=== PATIENT | female | born 1980 | race Caucasian/White ===

== ENCOUNTER 2022-01-23 18:52 | Emergency (ER) | payer OTHER, MEDICAID ==
[~2022-01-23] VITALS: Ht 165.1 cm; Wt 140.5 kg
== END 2022-01-23 21:46 | disposition left against medical advice (07) ==
LOC: M ED 18:52
DX: Z53.21 Procedure and treatment not carried out due to patient leaving prior to being seen by health care provider (principal)

== ENCOUNTER → 2022-01-29 | Outpatient (REF) | payer OTHER, MEDICAID | LOC: M PLALAB 09:01 | PROVIDERS: ATTEND Advanced Practice Midwife | DX: Z53.9 Procedure and treatment not carried out, unspecified reason (principal) ==

== ENCOUNTER → 2022-02-06 | Outpatient (CLI) | payer OTHER, MEDICAID | LOC: M PLALAB 07:11 | PROVIDERS: ATTEND Advanced Practice Midwife | DX: O03.9 Complete or unspecified spontaneous abortion without complication (principal); Z3A.00 Weeks of gestation of pregnancy not specified ==

== ENCOUNTER → 2022-06-30 | Outpatient (CLI) | payer MEDICAID, OTHER ==
[2022-06-30 13:31] LABS: HEMOGLOBIN 12.1 g/dl (12.0-15.5); MEAN CORPUSCULAR HEMOGLOBIN 27.1 pg (27.0-33.0); MEAN CORPUSCULAR HGB CONC 31.8 g/dl (32.0-36.5); MEAN CORPUSCULAR VOLUME 85.2 fl (80.0-96.0); PLATELET COUNT, AUTOMATED 278 10^3/uL (150-450); RED BLOOD COUNT 4.46 10^6/uL (4.00-5.40); WHITE BLOOD COUNT 9.5 10^3/uL (4.0-10.0)
[2022-06-30 14:02] LABS: HEMOGLOBIN A1c 5.7 %
[2022-06-30 14:47] LABS: GC DNA AMPLIFICATION NEGATIVE (NEGATIVE)
[2022-06-30 15:47] LABS: GLUCOSE CHALLENGE TEST 1 HOUR 217 MG/DL (LESS THAN 140); HEPATITIS C VIRUS ABY INDEX < 0.0 INDEX (<0.8); HIV 1&2 SCREEN CENTAUR NEGATIVE (NEGATIVE)
== END ==
LOC: M PLALAB 10:58
PROVIDERS: ATTEND Advanced Practice Midwife
DX: O09.529 Supervision of elderly multigravida, unspecified trimester (principal)

== ENCOUNTER → 2022-08-11 | Outpatient (REF) | payer OTHER, MEDICAID | LOC: M SFHCWAGY 17:06 | PROVIDERS: ATTEND Advanced Practice Midwife | DX: O09.529 Supervision of elderly multigravida, unspecified trimester (principal) ==

== ENCOUNTER → 2022-08-24 | Outpatient (CLI) | payer OTHER | LOC: M WHC 14:39 | PROVIDERS: ATTEND Advanced Practice Midwife | DX: O09.522 Supervision of elderly multigravida, second trimester (principal); Z3A.19 19 weeks gestation of pregnancy ==

== ENCOUNTER → 2022-09-30 | Outpatient (CLI) | payer OTHER | LOC: M WHC 14:06 | PROVIDERS: ATTEND Advanced Practice Midwife | DX: O24.312 Unspecified pre-existing diabetes mellitus in pregnancy, second trimester (principal); Z3A.24 24 weeks gestation of pregnancy ==

== ENCOUNTER → 2022-10-29 | Outpatient (CLI) | payer OTHER | LOC: M WHC 15:46 | PROVIDERS: ATTEND Specialist | DX: Z34.82 Encounter for supervision of other normal pregnancy, second trimester (principal); Z3A.28 28 weeks gestation of pregnancy ==

== ENCOUNTER → 2022-10-29 | Outpatient (CLI) | payer OTHER ==
[2022-10-29 17:39] LABS: HEMATOCRIT 33.7 % (36.0-47.0); HEMOGLOBIN 10.6 g/dl (12.0-15.5); MEAN CORPUSCULAR HEMOGLOBIN 28.1 pg (27.0-33.0); MEAN CORPUSCULAR HGB CONC 31.5 g/dl (32.0-36.5); MEAN CORPUSCULAR VOLUME 89.4 fl (80.0-96.0); PLATELET COUNT, AUTOMATED 277 10^3/uL (150-450); RED BLOOD COUNT 3.77 10^6/uL (4.00-5.40); WHITE BLOOD COUNT 11.1 10^3/uL (4.0-10.0)
[2022-10-29 19:44] LABS: GC DNA AMPLIFICATION NEGATIVE (NEGATIVE)
== END ==
LOC: M PLALAB 15:00
PROVIDERS: ATTEND Specialist
DX: Z34.82 Encounter for supervision of other normal pregnancy, second trimester (principal)
CPT/HCPCS: 36415; 82950; 85027; 86850; 86900; 86901; 87810; 87850; J2790

== ENCOUNTER → 2022-12-04 | Outpatient (CLI) | payer OTHER | LOC: M WHC 13:01 | PROVIDERS: ATTEND Obstetrics & Gynecology | DX: O24.913 Unspecified diabetes mellitus in pregnancy, third trimester (principal); Z3A.34 34 weeks gestation of pregnancy ==

== ENCOUNTER 2022-12-18 16:57 | Outpatient (CLI) | payer OTHER, MEDICAID ==
[~2022-12-18] VITALS: Ht 165.1 cm; Wt 141.4 kg
[2022-12-18 17:15] VITALS: BP 135/62
[2022-12-18] MEDS ORDERED: METF-839 PO (17:21)
[2022-12-18] MEDS ORDERED: ASPI81CH33 PO (17:21)
[2022-12-18] MEDS ORDERED: ACET-683 PO (17:21)
[2022-12-18] MEDS ORDERED: MULTTAB20 PO (17:21)
[2022-12-18] MEDS ORDERED: HOME MED LIST COMPLETE! XX SCH (17:25)
== END 2022-12-18 18:30 | disposition home or self-care (01) ==
LOC: M LDO 16:57
PROVIDERS: ATTEND Advanced Practice Midwife
DX: O24.419 Gestational diabetes mellitus in pregnancy, unspecified control (principal); O99.213 Obesity complicating pregnancy, third trimester; E66.9 Obesity, unspecified; Z3A.36 36 weeks gestation of pregnancy
CPT/HCPCS: 59025; 76815; 76819; 76820; G0463

== ENCOUNTER → 2022-12-18 | Outpatient (REF) | payer OTHER, MEDICAID ==
[~2022-12-18] MED LIST: ACET-683 PO; ASPI81CH33 PO; METF-839 PO; MULTTAB20 PO
== END ==
LOC: M SFHCWAGY 13:06
PROVIDERS: ATTEND Advanced Practice Midwife
DX: Z3A.36 36 weeks gestation of pregnancy (principal)

== ENCOUNTER 2023-01-02 11:46 | Inpatient (IN) | payer OTHER, MEDICAID ==
[2023-01-02] VITALS (20 sets, daily range): BP systolic 115–145; BP diastolic 57–82
[~2023-01-02] VITALS: Ht 165.1 cm; Wt 140.7 kg
[2023-01-02] MEDS ORDERED: LIDOCAINE 1% MDV 20ML VIAL INFIL PRN (12:15)
[2023-01-02] MEDS ORDERED: CARBOPROST TROMETHAMINE 250 MCG/ML AMP IM PRN (12:15)
[2023-01-02] MEDS ORDERED: TRANEXAMIC ACID INJection 1,000 MG in NS 100 ML IV PRN (12:15)
[2023-01-02] MEDS ORDERED: METHYLERGONOVINE MALEATE 0.2MG/ML 1ML VIAL IM PRN (12:15)
[2023-01-02] MEDS ORDERED: OXYTOCIN DRIP 30 UNITS in IV 1 EA IV PRN ×4 (12:15)
[2023-01-02] MEDS ORDERED: HOME MED LIST COMPLETE! XX SCH (12:45)
[2023-01-02 13:31] LABS: HEMATOCRIT 33.7 % (36.0-47.0); MEAN CORPUSCULAR HEMOGLOBIN 27.8 pg (27.0-33.0); MEAN CORPUSCULAR HGB CONC 32.6 g/dl (32.0-36.5); MEAN CORPUSCULAR VOLUME 85.3 fl (80.0-96.0); PLATELET COUNT, AUTOMATED 262 10^3/uL (150-450); RED BLOOD COUNT 3.95 10^6/uL (4.00-5.40); WHITE BLOOD COUNT 11.8 10^3/uL (4.0-10.0)
[2023-01-02] MEDS ORDERED: OXYTOCIN DRIP 30 UNITS in IV 1 EA IV SCH (13:35)
[2023-01-02] MEDS: LR 1,000 ML IV SCH ×2 (14:00→21:45)
[2023-01-02] MEDS ORDERED: ACETAMINOPHEN 500 MG TAB PO PRN (17:55)
[2023-01-03] VITALS (44 sets, daily range): BP systolic 99–155; BP diastolic 53–83
[2023-01-03] MEDS: LR 1,000 ML IV SCH ×5 (04:55→23:50)
[2023-01-03] MEDS ORDERED: EPIDURAL/PCA KEYS XX PRN (05:35)
[2023-01-03] MEDS ORDERED: NALOXONE INJ 0.4MG/1ML VIAL IV PRN ×3 (05:35→14:55)
[2023-01-03] MEDS ORDERED: diphenhydrAMINE 50MG/ML VIAL IV PRN ×2 (05:35→14:55)
[2023-01-03] MEDS ORDERED: LR 500 ML IV PRN (05:35)
[2023-01-03] MEDS ORDERED: ePHEDrine SULFATE 25 MG/5 ML(5MG/ML) SYRINGE IVP PRN (05:35)
[2023-01-03] MEDS ORDERED: ONDANSETRON 4MG 2ML VIAL IV PRN ×3 (05:35→15:50)
[2023-01-03] MEDS: FENTANYL/ROPIVACAINE/NACL BAG 100 ML EPIDURAL SCH ×2 (06:04→13:43)
[2023-01-03] MEDS ORDERED: BICITRA 30ML SOLN UDC PO ONE (14:10)
[2023-01-03] MEDS ORDERED: AZITHROMYCIN INJ 500 MG, VIAL MATE ADAPTER 1 EACH in NS 250 ML IV ONE (14:10)
[2023-01-03] MEDS ORDERED: METHYLERGONOVINE MALEATE 0.2MG/ML 1ML VIAL IM PRN (14:10)
[2023-01-03] MEDS ORDERED: TRANEXAMIC ACID INJection 1,000 MG in NS 100 ML IV PRN (14:10)
[2023-01-03] MEDS ORDERED: ceFAZolin SOD 3 GM IV Place Holder IV ONE (14:10)
[2023-01-03] MEDS ORDERED: ceFAZolin SOD 2 GM in IV 1 EA IV ONE (14:25)
[2023-01-03] MEDS ORDERED: ceFAZolin SOD 1 GM in D5W MINI-BAG PLUS 50 ML IV ONE (14:25)
[2023-01-03] MEDS ORDERED: LIDOCAINE 2% W/EPINEPHRINE 20ML VIAL **PRES FREE As Ordered ONE (14:34)
[2023-01-03] MEDS ORDERED: MEPERIDINE 25 MG/ML 1ML VIAL IV PRN (14:55)
[2023-01-03] MEDS ORDERED: oxyCODONE 5MG TAB PO PRN (14:55)
[2023-01-03] MEDS ORDERED: METOCLOPRAMIDE INJ 10MG/2ML VIAL IV PRN (14:55)
[2023-01-03] MEDS ORDERED: fentaNYL 100 MCG/2 ML INJECTION IV PRN (14:55)
[2023-01-03] MEDS ORDERED: KETOROLAC 60MG 2ML VIAL As Ordered ONE (14:59)
[2023-01-03] MEDS ORDERED: ONDANSETRON 4MG 2ML VIAL As Ordered ONE (14:59)
[2023-01-03] MEDS ORDERED: PHENYLephrine 500MCG 5ML (100MCG/ML) SYRINGE As Ordered ONE (14:59)
[2023-01-03] MEDS ORDERED: SODIUM BICARBONATE 8.4% INJ 50ML SYRINGE As Ordered ONE (14:59)
[2023-01-03] MEDS ORDERED: MORPHINE PRES-FREE INJ 10 MG/10 ML VIAL As Ordered ONE (15:02)
[2023-01-03] MEDS ORDERED: OXYTOCIN 30UNITS IN 0.9% NaCl 500ML IV BAG As Ordered ONE (15:25)
[2023-01-03] MEDS ORDERED: RHOGAM 300MCG (1500IU) INJ IM SCH (15:50)
[2023-01-03] MEDS ORDERED: PERCOCET 5MG/325MG TAB PO PRN ×2 (15:50)
[2023-01-03] MEDS ORDERED: OXYTOCIN DRIP 30 UNITS in IV 1 EA IV SCH (15:50)
[2023-01-03] MEDS ORDERED: MOM 30ML SUSPENSION UDC PO PRN (15:50)
[2023-01-03] MEDS ORDERED: SIMETHICONE 80MG CHEW TAB PO PRN (15:50)
[2023-01-03] MEDS: SLF 3 ML SYR IV SCH ×2 (19:35→22:55)
[2023-01-03] MEDS: DOCUSATE SODIUM 100MG CAPSULE PO SCH (21:12)
[2023-01-03] MEDS: KETOROLAC 30 MG/ML 1ML VIAL IV SCH (22:08)
[2023-01-03] MEDS: ENOXAPARIN 40MG/0.4ML SYRINGE (J1650 PER 10MG) SC SCH (22:24)
[2023-01-04] MEDS: FENTANYL/ROPIVACAINE/NACL BAG 100 ML EPIDURAL SCH (01:33)
[2023-01-04 02:00] VITALS: BP 110/63
[2023-01-04] MEDS: KETOROLAC 30 MG/ML 1ML VIAL IV SCH ×2 (04:04→11:07)
[2023-01-04] MEDS: LR 1,000 ML IV SCH (05:20)
[2023-01-04 06:30] VITALS: BP 93/51
[2023-01-04] MEDS: SLF 3 ML SYR IV SCH (06:55)
[2023-01-04 07:30] LABS: MEAN CORPUSCULAR HEMOGLOBIN 28.1 pg (27.0-33.0); MEAN CORPUSCULAR HGB CONC 31.9 g/dl (32.0-36.5); MEAN CORPUSCULAR VOLUME 88.2 fl (80.0-96.0); PLATELET COUNT, AUTOMATED 196 10^3/uL (150-450); RED BLOOD COUNT 3.06 10^6/uL (4.00-5.40); WHITE BLOOD COUNT 10.6 10^3/uL (4.0-10.0)
[2023-01-04 07:36] LABS: HEMOGLOBIN 8.6 g/dl (12.0-15.5)
[2023-01-04 10:00] VITALS: BP 113/57
[2023-01-04] MEDS: PRENATAL VITAMINS CHEWABLE TABLET PO SCH (11:07)
[2023-01-04] MEDS: ENOXAPARIN 40MG/0.4ML SYRINGE (J1650 PER 10MG) SC SCH ×3 (11:08→22:44)
[2023-01-04] MEDS: DOCUSATE SODIUM 100MG CAPSULE PO SCH ×2 (11:09→20:53)
[2023-01-04 14:00] VITALS: BP 133/64
[2023-01-04 17:45] VITALS: BP 110/56
[2023-01-04] MEDS: IBUPROFEN 800 MG TAB PO SCH (17:51)
[2023-01-04 22:00] VITALS: BP 97/53
[2023-01-05] MEDS: IBUPROFEN 800 MG TAB PO SCH ×2 (01:58→09:20)
[2023-01-05 02:00] VITALS: BP 100/60
[2023-01-05 06:03] VITALS: BP 125/67
[2023-01-05] MEDS ORDERED: MEASLES,MUMPS,RUBELLA VACCINE INJ (MMR-II) SC.IMMUN ONE (09:00)
[2023-01-05] MEDS: PRENATAL VITAMINS CHEWABLE TABLET PO SCH (09:17)
[2023-01-05] MEDS: DOCUSATE SODIUM 100MG CAPSULE PO SCH (09:20)
[2023-01-05 10:00] VITALS: BP 126/60
[2023-01-05] MEDS: ENOXAPARIN 40MG/0.4ML SYRINGE (J1650 PER 10MG) SC SCH (10:32)
[2023-01-05] MEDS ORDERED: COLA100C5 PO (12:31)
[2023-01-05] MEDS ORDERED: IBUP80TA PO (12:31)
[2023-01-05] MEDS ORDERED: PERCOCET PO (12:31)
== END 2023-01-05 15:18 | disposition home or self-care (01) | DRG 540 ==
LOC: M LDI 11:46 → M OBS 01-03 17:38
PROVIDERS: ADMIT Obstetrics & Gynecology; ATTEND Obstetrics & Gynecology
PROC: 3E033VJ Introduction of Other Hormone into Peripheral Vein, Percutaneous Approach (ICD-10-PCS; 2023-01-02)
PROC: 10D00Z1 Extraction of Products of Conception, Low, Open Approach (ICD-10-PCS; principal; 2023-01-03 14:30)
DX: O24.313 Unspecified pre-existing diabetes mellitus in pregnancy, third trimester (principal); O61.0 Failed medical induction of labor; Z37.0 Single live birth; Z3A.38 38 weeks gestation of pregnancy; O09.523 Supervision of elderly multigravida, third trimester; O34.211 Maternal care for low transverse scar from previous cesarean delivery

== ENCOUNTER → 2023-05-31 | Outpatient (REF) | payer OTHER, MEDICAID ==
[~2023-05-31] MED LIST changes: +COLA100C5 PO; +IBUP80TA PO; +PERCOCET PO
== END ==
LOC: M SFHCWAGY 10:14
PROVIDERS: ATTEND Nurse Practitioner Family
DX: Z12.4 Encounter for screening for malignant neoplasm of cervix (principal)

== ENCOUNTER → 2023-06-11 | Outpatient (CLI) | payer OTHER | LOC: M WHC 08:02 | PROVIDERS: ATTEND Nurse Practitioner Family | DX: Z12.31 Encounter for screening mammogram for malignant neoplasm of breast (principal); Z53.9 Procedure and treatment not carried out, unspecified reason ==

== ENCOUNTER 2024-08-05 16:25 | Inpatient (IN) | payer MEDICAID, OTHER ==
[~2024-08-05] VITALS: Ht 165.1 cm; Wt 139.9 kg
[2024-08-05 17:45] LABS: BASO % 0.3 % (0.0-1.0); EOS # 0.2 10^3/uL (0.0-0.5); EOS % 1.7 % (0.0-3.0); HEMATOCRIT 41.6 % (36.0-47.0); LYMPH # 2.4 10^3/uL (1.5-5.0); LYMPH % 21.2 % (24.0-44.0); MEAN CORPUSCULAR HEMOGLOBIN 25.2 pg (27.0-33.0); MEAN CORPUSCULAR HGB CONC 31.3 g/dl (32.0-36.5); MEAN CORPUSCULAR VOLUME 80.6 fl (80.0-96.0); MONO # 0.7 10^3/uL (0.0-0.8); MONO % 6.2 % (2.0-8.0); NEUTROPHILS # 7.8 10^3/uL (1.5-8.5); NEUTROPHILS % 70.3 % (36.0-66.0); PLATELET COUNT, AUTOMATED 311 10^3/uL (150-450); RED BLOOD COUNT 5.16 10^6/uL (4.00-5.40); WHITE BLOOD COUNT 11.1 10^3/uL (4.0-10.0)
[2024-08-05 18:08] LABS: ALBUMIN 3.6 G/DL (3.2-5.2); ALKALINE PHOSPHATASE 257 U/L (35-104); ALT/SGPT 149 U/L (7.0-40); AST/SGOT 236 U/L (<34); BILIRUBIN,DIRECT 0.4 MG/DL (<0.4); BILIRUBIN,TOTAL 0.6 MG/DL (0.3-1.2); CPK CREATINE PHOSPHOKINASE 67 U/L (34-145); HCG, SERUM QUALITATIVE NEGATIVE (NEGATIVE); TOTAL PROTEIN 7.1 G/DL (5.7-8.2)
[2024-08-05 18:09] LABS: CK-MB VALUE MASS < 1.0 NG/ML (<3.6); MB/CK RELATIVE INDEX 1.49 (< OR =4)
[2024-08-05 18:18] LABS: LIPASE > 3500 U/L (12-53)
[2024-08-05] MEDS ORDERED: ISOVUE-370 76% 100ML VIAL As Ordered ONE (19:19)
[2024-08-05] MEDS: ONDANSETRON 4MG 2ML VIAL IV ONE (19:45)
[2024-08-05] MEDS: KETOROLAC 30 MG/ML 1ML VIAL IV ONE (19:46)
[2024-08-05] MEDS ORDERED: MORPHINE 4 MG/ML 1ML VIAL IV PRN (22:55)
[2024-08-05] MEDS ORDERED: HOME MED LIST COMPLETE! XX SCH (23:05)
[2024-08-05] MEDS: NS 1,000 ML IV SCH (23:27)
[2024-08-06 01:40] LABS: BLOOD UREA NITROGEN 19 MG/DL (9-23); CARBON DIOXIDE LEVEL 28 MMOL/L (20-31); CHLORIDE LEVEL 108 MMOL/L (98-107); CREATININE FOR GFR 0.96 MG/DL (0.55-1.30); GLOMERULAR FILTRATION RATE > 60.0 (>58); GLUCOSE, FASTING 123 MG/DL (60-100); POTASSIUM SERUM 4.8 MMOL/L (3.5-5.1); SODIUM LEVEL 141 MMOL/L (136-145)
[2024-08-06 01:54] VITALS: BP 171/86; TEMP 97.5; O2SAT 92
[2024-08-06 02:00] VITALS: BP 177/86; TEMP 97.5; O2SAT 96
[2024-08-06] MEDS: ONDANSETRON 4MG 2ML VIAL IV PRN (02:17)
[2024-08-06] MEDS: KETOROLAC 30 MG/ML 1ML VIAL IV PRN (02:17)
[2024-08-06 03:52] VITALS: BP 158/87; TEMP 97.5; O2SAT 95
[2024-08-06 07:18] LABS: CHOLESTEROL LEVEL 105 MG/DL (<200); CHOLESTEROL RISK RATIO 2.44 (<5); LDL CHOLESTEROL 54.6 MG/DL (<100); TRIGLYCERIDES LEVEL 37 MG/DL (<150)
[2024-08-06 07:47] LABS: AMYLASE 768 U/L (30-118); BASO % 0.2 % (0.0-1.0); EOS # 0.1 10^3/uL (0.0-0.5); HEMATOCRIT 39.3 % (36.0-47.0); HEMOGLOBIN 12.6 g/dl (12.0-15.5); LYMPH # 2.5 10^3/uL (1.5-5.0); LYMPH % 19.6 % (24.0-44.0); MEAN CORPUSCULAR HEMOGLOBIN 25.8 pg (27.0-33.0); MEAN CORPUSCULAR HGB CONC 32.1 g/dl (32.0-36.5); MEAN CORPUSCULAR VOLUME 80.5 fl (80.0-96.0); MONO # 0.5 10^3/uL (0.0-0.8); MONO % 4.2 % (2.0-8.0); NEUTROPHILS # 9.4 10^3/uL (1.5-8.5); NEUTROPHILS % 74.8 % (36.0-66.0); PLATELET COUNT, AUTOMATED 302 10^3/uL (150-450); RED BLOOD COUNT 4.88 10^6/uL (4.00-5.40); WHITE BLOOD COUNT 12.6 10^3/uL (4.0-10.0)
[2024-08-06 08:12] LABS: HEPATITIS B SURFACE ANTIGEN NEGATIVE (NEGATIVE)
[2024-08-06 08:34] LABS: HEPATITIS B CORE ANTIBODY IGM NEGATIVE (NEGATIVE); HEPATITIS C VIRUS ABY INDEX < 0.02 INDEX (<0.8)
[2024-08-06 08:56] LABS: ALBUMIN 3.2 G/DL (3.2-5.2); ALKALINE PHOSPHATASE 229 U/L (35-104); ALT/SGPT 218 U/L (7.0-40); AST/SGOT 194 U/L (<34); BILIRUBIN,TOTAL 0.5 MG/DL (0.3-1.2); BLOOD UREA NITROGEN 22 MG/DL (9-23); CALCIUM LEVEL 10.1 MG/DL (8.5-10.1); CARBON DIOXIDE LEVEL 26 MMOL/L (20-31); CHLORIDE LEVEL 110 MMOL/L (98-107); CREATININE FOR GFR 0.93 MG/DL (0.55-1.30); GLOMERULAR FILTRATION RATE > 60.0 (>58); GLUCOSE, FASTING 113 MG/DL (60-100); HIV 1&2 SCREEN NEGATIVE (NEGATIVE); LIPASE 819 U/L (12-53); POTASSIUM SERUM 4.4 MMOL/L (3.5-5.1); PTH INTACT 19.6 PG/ML (18.5-88.0); SODIUM LEVEL 142 MMOL/L (136-145); TOTAL 25(OH) VITAMIN D 40.5 NG/ML (20.0-100.0); TOTAL PROTEIN 6.6 G/DL (5.7-8.2)
[2024-08-06] MEDS: NS 1,000 ML IV ONE (09:00)
[2024-08-06] MEDS ORDERED: RIZATRIPTAN MLT 10 MG TAB PO PRN (10:15)
[2024-08-06 10:24] VITALS: BP 140/78
[2024-08-06] MEDS: KETOROLAC 30 MG/ML 1ML VIAL IV ONE (10:31)
[2024-08-06] MEDS: NS 0.45% 1,000 ML IV ONE (11:31)
[2024-08-06] MEDS: FIORICET TAB PO ONE (11:41)
[2024-08-06] MEDS: METOCLOPRAMIDE INJ 10MG/2ML VIAL IV ONE (11:41)
[2024-08-06] MEDS: HYDROMORPHONE HCL 0.5 MG/ 0.5 ML SYRINGE IV ONE (11:41)
[2024-08-06 12:00] VITALS: BP 138/76; TEMP 97.7; O2SAT 99
[2024-08-06] MEDS: KETOROLAC 30 MG/ML 1ML VIAL IV SCH (17:38)
[2024-08-07 06:30] LABS: BASO % 0.2 % (0.0-1.0); EOS # 0.5 10^3/uL (0.0-0.5); EOS % 3.5 % (0.0-3.0); HEMATOCRIT 35.5 % (36.0-47.0); LYMPH # 2.4 10^3/uL (1.5-5.0); LYMPH % 18.1 % (24.0-44.0); MEAN CORPUSCULAR HEMOGLOBIN 24.9 pg (27.0-33.0); MEAN CORPUSCULAR VOLUME 80.5 fl (80.0-96.0); MONO # 0.7 10^3/uL (0.0-0.8); MONO % 5.2 % (2.0-8.0); NEUTROPHILS # 9.5 10^3/uL (1.5-8.5); NEUTROPHILS % 72.4 % (36.0-66.0); PLATELET COUNT, AUTOMATED 254 10^3/uL (150-450); RED BLOOD COUNT 4.41 10^6/uL (4.00-5.40); WHITE BLOOD COUNT 13.2 10^3/uL (4.0-10.0)
[2024-08-07 06:51] LABS: LIPASE 208 U/L (12-53)
[2024-08-07] MEDS ORDERED: PROT20TA11 PO (06:56)
[2024-08-07] MEDS ORDERED: CARA1TAB6 PO (06:56)
[2024-08-07 06:59] LABS: ALBUMIN 2.9 G/DL (3.2-5.2); ALKALINE PHOSPHATASE 182 U/L (35-104); ALT/SGPT 134 U/L (7.0-40); AST/SGOT 61 U/L (<34); BILIRUBIN,TOTAL 0.6 MG/DL (0.3-1.2); BLOOD UREA NITROGEN 12 MG/DL (9-23); CARBON DIOXIDE LEVEL 26 MMOL/L (20-31); CHLORIDE LEVEL 109 MMOL/L (98-107); CREATININE FOR GFR 0.78 MG/DL (0.55-1.30); GLOMERULAR FILTRATION RATE > 60.0 (>58); GLUCOSE, FASTING 98 MG/DL (60-100); POTASSIUM SERUM 4.1 MMOL/L (3.5-5.1); SODIUM LEVEL 140 MMOL/L (136-145); TOTAL PROTEIN 6.2 G/DL (5.7-8.2)
[2024-08-07] MEDS ORDERED: ONDA-282 PO (07:00)
[2024-08-07] MEDS ORDERED: SENO8.6T10 PO (07:00)
[2024-08-07] MEDS ORDERED: OXYC-517 PO (07:00)
[2024-08-07 10:56] VITALS: BP 139/78; TEMP 97.9; O2SAT 98
== END 2024-08-07 15:30 | disposition home or self-care (01) | DRG 282 ==
LOC: M ED 16:25 → M ED INP 08-06 00:12 → M MS5PR 08-06 02:01
PROVIDERS: ADMIT Internal Medicine; ATTEND General Practice
DX: K85.90 Acute pancreatitis without necrosis or infection, unspecified (principal); Z68.43 Body mass index [BMI] 50.0-59.9, adult; E66.01 Morbid (severe) obesity due to excess calories; E88.09 Other disorders of plasma-protein metabolism, not elsewhere classified; R74.01 Elevation of levels of liver transaminase levels; G47.33 Obstructive sleep apnea (adult) (pediatric); D64.9 Anemia, unspecified; D72.829 Elevated white blood cell count, unspecified

== ENCOUNTER → 2024-08-15 | Outpatient (REF) | payer MEDICAID, SELFPAY ==
[~2024-08-15] MED LIST changes: +CARA1TAB6 PO; +ONDA-282 PO; +OXYC-517 PO; +PROT20TA11 PO; +SENO8.6T10 PO
[2024-08-15 19:09] LABS: LIPASE 55 U/L (12-53)
[2024-08-15 19:10] LABS: AMYLASE 62 U/L (30-118)
[2024-08-15 19:11] LABS: ALBUMIN 3.4 G/DL (3.2-5.2); ALKALINE PHOSPHATASE 148 U/L (35-104); ALT/SGPT 44 U/L (7.0-40); AST/SGOT 23 U/L (<34); BILIRUBIN,TOTAL 0.3 MG/DL (0.3-1.2); BLOOD UREA NITROGEN 16 MG/DL (9-23); CALCIUM LEVEL 9.5 MG/DL (8.5-10.1); CARBON DIOXIDE LEVEL 25 MMOL/L (20-31); CHLORIDE LEVEL 105 MMOL/L (98-107); CREATININE FOR GFR 0.79 MG/DL (0.55-1.30); GLOMERULAR FILTRATION RATE > 60.0 (>58); GLUCOSE, FASTING 93 MG/DL (60-100); POTASSIUM SERUM 4.6 MMOL/L (3.5-5.1); SODIUM LEVEL 140 MMOL/L (136-145); TOTAL PROTEIN 7.1 G/DL (5.7-8.2)
== END ==
LOC: M LAB REF 16:49
PROVIDERS: ATTEND Family Medicine Addiction Medicine
DX: K85.90 Acute pancreatitis without necrosis or infection, unspecified (principal)

== ENCOUNTER 2025-01-20 08:59 | Emergency (ER) | payer MEDICAID, SELFPAY ==
[~2025-01-20] VITALS: Ht 165.1 cm; Wt 135.6 kg
[2025-01-20] MEDS ORDERED: AMOX875T PO (10:20)
[2025-01-20 10:25] VITALS: BP 136/82; TEMP 97.7; O2SAT 99
== END 2025-01-20 10:26 | disposition home or self-care (01) ==
LOC: M ED 08:59
DX: H66.92 Otitis media, unspecified, left ear (principal); F32.A Depression, unspecified